=== PATIENT | female | born 1930 | race Caucasian/White ===

== ENCOUNTER 2021-10-16 21:39 | Emergency (ER) | payer MEDICARE, BC ==
[2021-10-16] MEDS ORDERED: Lidocaine 1% 30 ML SDV INJECT ONE (21:51)
== END 2021-10-17 01:50 ==
LOC: VM.ED 21:39
DX: S01.511A Laceration without foreign body of lip, initial encounter (principal); S53.402A Unspecified sprain of left elbow, initial encounter; Z79.899 Other long term (current) drug therapy; W18.09XA Striking against other object with subsequent fall, initial encounter
CPT/HCPCS: 12011; 70450; 70486; 73080-RT; 73200-RT; 99283; 99284-25

== ENCOUNTER 2021-10-30 10:39 | Emergency (ER) | payer MEDICARE, BC ==
[2021-10-30 11:56] LABS: CHLORIDE,CL 106 mmol/L (98-107); SODIUM,NA 143 mmol/L (136-145)
[2021-10-30 11:57] LABS: ANION GAP 10.3 mmol/L (5-15)
== END 2021-10-30 12:31 | disposition home or self-care (01) ==
LOC: VM.ED 10:39
DX: M79.89 Other specified soft tissue disorders (principal); E03.9 Hypothyroidism, unspecified; I10 Essential (primary) hypertension; Z79.899 Other long term (current) drug therapy
CPT/HCPCS: 36415; 80053; 85025; 86140; 93971-RT; 99283; 99284-25

== ENCOUNTER 2021-11-03 17:36 | Emergency (ER) | payer MEDICARE, BC | END 2021-11-03 18:05 | disposition home or self-care (01) | LOC: VM.ED 17:36 | DX: S42.401D Unspecified fracture of lower end of right humerus, subsequent encounter for fracture with routine healing (principal); I10 Essential (primary) hypertension; Z79.899 Other long term (current) drug therapy | CPT/HCPCS: 29105; 99283; 99283-25 ==